=== PATIENT | female | born 1975 | race Caucasian/White ===

== ENCOUNTER 2020-08-16 10:47 | Emergency (ER) | payer MEDICARE, MEDICAID, SELFPAY ==
--- NOTE | ~2020-08-16 | XR_ITS ---
EXAMINATION: XR knee LT 3V DATE: 08/16/2020 11:47 INDICATION: Left knee pain, swelling and tenderness TECHNIQUE: Anteroposterior, oblique and crosstable lateral views of the left knee were obtained COMPARISON: None. FINDINGS: Alignment is normal. No fracture. Moderate-sized left knee joint effusion without layering lipohemar throsis. Soft tissue swelling at the medial aspect of the knee. IMPRESSION: 1. Moderate size left knee joint effusion and medial sided soft tissue swelling. No osseous abnormali ty. Reviewed, dictated and finalized at location A. ITE INSTALLER IMPRESSION: 1. Moderate size left knee joint effusion and medial sided soft tissue swelling . No osseous abnormality.
[2020-08-16 10:50] VITALS: BP 139/77; PULSE 71; RESP 18; TEMP 35.9; O2SAT 100
--- NOTE | 2020-08-16 12:19 | ED.LOWEXIN ---
HPI - Extremity Injury (Lower) General Chief Complaint: Extremity Injury, Lower Stated Complaint: L knee pain Time Seen by Provider: 08/16/20 11:13 Source: patient Mode of arrival: ambulatory Limitations: no limitations History of Present Illness HPI Narrative: 44-year-old female Generally healthy Complains of soreness, swelling, restriction in range of motion, and occasional locking sensation in left leg for several weeks Does seem to be getting a little worse for the last few days There is no recent injury but she does recall that about a year ago she was lying on the ground and somebody fell on the back of that leg Review of Systems Review of Systems: All systems reviewed & are unremarkable except as noted in HPI and below Constitutional: Constitutional: Denies fever(s) and Denies headache(s) Eyes: Eyes: Reports no additional eye complaints and Denies change in vision ENT: Denies headache(s) Comments: She is hard of hearing Cardiovascular: Cardiovascular: Denies leg edema, Denies palpitations and Denies dyspnea Genitourinary: Genitourinary: Denies urinary frequency Musculoskeletal: Musculoskeletal: Denies back pain, Denies deformity, Reports arthralgias, Reports joint swelling, Denies muscle weakness and Denies numbness Integumentary/Breasts: Skin/Breast: Denies rash and Denies wounds Endocrine: Endocrine: Denies palpitations Allergic/Immunologic: Allergic/Immunologic: Denies wheezing Exam Const: General: no acute distress, well developed and awake Nutritional Appearance: well nourished Orientation/consciousness: patient oriented x3 (alert) HENMT: Head: normocephalic and atraumatic General nose exam: No nasal discharge present Face and sinus: face symmetric Eyes: Conjunctivae: conjunctivae normal Sclera: sclerae normal EOM: EOMs intact bilaterally Neck: Neck: supple and no JVD Chest: Chest palpation & inspection: deferred Resp: Effort & Inspection: normal respiratory effort Auscultation: other (BS =) Cardio: Heart sounds: no gallops GI: Inspection: normal to inspection Back/Spine/Pelvis: Thoracic/Lumbar Spine: thoracic and lumbar spine normal to inspection Skin: General skin exam: no rashes or lesions noted Neuro: General: patient oriented x3 (alert) and moves all extremities Cranial nerves: Yes facial symmetry Speech: normal speech Extrem: General: normal to inspection and full ROM Other: Left knee has a small palpable knee effusion Cannot elicit any varus valgus or AP laxity with stress testing No redness and no well localized tenderness Course Vital Signs Vital signs: Vital Signs Temperature 35.9 C L 08/16/20 10:50 Pulse Rate 71 08/16/20 10:50 Respiratory Rate 18 08/16/20 10:50 Blood Pressure 139/77 08/16/20 10:50 Pulse Oximetry 100 08/16/20 10:50 Temperature 35.9 C L 08/16/20 10:50 Pulse Rate 71 08/16/20 10:50 Respiratory Rate 18 08/16/20 10:50 Blood Pressure 139/77 08/16/20 10:50 Pulse Oximetry 100 08/16/20 10:50 Discharge Plan Discharge Clinical Impression: Acute internal derangement of knee Patient Disposition: Home, Self-Care Condition: Stable Instructions: Swollen Knee Joint (ED) Additional Instructions: Suspicion is of loose bodies, either cartilage or bone chips, causing swelling and limitation of movement Please follow-up with orthopedics for further evaluation Prescriptions: New naproxen [Naprosyn] 500 mg tablet 500 mg PO BID Qty: 30 RF: 0 Follow-up/Referrals: Yo Baron MD [Physician] - (make appointment this week ) Vinayak Stephenson MD [Primary Care Provider] -
== END 2020-08-16 12:45 | disposition home or self-care (01) ==
PROVIDERS: Emergency Provider Emergency Medicine; PCP Family Medicine
DX: M23.92 Unspecified internal derangement of left knee (principal)
CPT/HCPCS: 73562; 99283

== ENCOUNTER 2020-08-22 13:36 | Emergency (ER) | payer MEDICARE, MEDICAID, SELFPAY ==
[2020-08-22] VITALS (10 sets, daily range): BP systolic 108–137; BP diastolic 63–85; PULSE 64–80; RESP 16–24; TEMP 36.8; O2SAT 97–100
--- NOTE | ~2020-08-22 | CT_ITS ---
EXAMINATION: CT brain wo con DATE: 08/22/2020 14:29 INDICATION: Fall. Syncopal episode. TECHNIQUE: Computed tomography (CT) of the head was performed without intravenous contrast. The mA wa s adjusted according to patient size. Iterative reconstruction technique was employed. Exam dose: 52 9.67 mGy-cm total exam DLP. COMPARISON: None FINDINGS: There is streak artifact from a right cochlear implant. No intracranial mass lesion or hemorrhage or cerebrovascular accident is evident. No midline shift or mass effect. Normal ventricular size. No subdural or epidural hematoma. No fracture or bone destruction of the cranial vault. The mastoid air cells and included paranasal si nuses are unremarkable. IMPRESSION: Right cochlear implant No acute intracranial finding or skull fracture Reviewed, dictated and finalized at Location A. Reviewed, dictated and finalized at location B. [employer] OPERATOR [employer]
--- NOTE | ~2020-08-22 | CT_ITS ---
EXAMINATION: CTA chest PE protocol EXAM DATE: 08/22/2020 15:49 INDICATION: Syncope. Abnormal chest x-ray. Transient alteration of awareness. TECHNIQUE: Spiral CTA of the chest (pulmonary arteries) was performed with 100 cc Omnipaque 350 intr avenous contrast injection. Images were acquired during the pulmonary arterial phase. Coronal maxi mum intensity projection 3D-reconstructions were created by the technologist on dedicated workstation . Axial, coronal and sagittal reformatted images were reviewed. The dose-length product (DLP) for t his examination was 418.59 mGy-cm. The exposure was tailored according to patient size (auto mA exp osure control), and iterative reconstruction (ASIR) was used as additional dose reduction technique. There is no prior study for comparison. FINDINGS: Pulmonary arteries are well opacified and without intraluminal filling defects. No thora cic aortic dissection. The lungs are clear. There are no pleural or pericardial effusions. Trach eobronchial tree is patent. There is no mediastinal, hilar or axillary lymphadenopathy. There is no pneumothorax. Heart normal in size. No evidence of coronary arterial calcification. Upper abd omen is unremarkable. The bones are unremarkable. IMPRESSION: 1. Normal CT pulmonary exam. Reviewed, dictated and finalized at location A. STEWARD
--- NOTE | ~2020-08-22 | XR_ITS ---
EXAMINATION: XR chest 1V portable DATE: 08/22/2020 14:46 INDICATION: Transient alteration of awareness. TECHNIQUE: A single frontal view of the chest was obtained. COMPARISON: None. FINDINGS: There are mild airspace opacities in right lower lung zone. No pleural effusion or pneumoth orax. The heart size is normal. IMPRESSION: 1. Mild airspace opacities in right lower lung zone, consistent with atelectasis versus pneumonia. Reviewed, dictated and finalized at location A. TRON BEAM WELDER IMPRESSION: 1. Mild airspace opacities in right lower lung zone, consistent with atelectasi s versus pneumonia.
--- NOTE | ~2020-08-22 | XR_ITS ---
XR elbow LT min 3V 08/22/2020 14:39 INDICATION: Left elbow pain after fall PROCEDURE: 4 views left elbow. Lateral views nonstandard limiting evaluation for joint effusion. COMPARISON: No prior studies for comparison. FINDINGS: There is a possible nondisplaced radial head fracture. The soft tissues appear within charlie l limits. No foreign bodies are identified. IMPRESSION: 1: Possible nondisplaced radial head fracture. Reviewed, dictated and finalized at location A. PATIONAL THER
--- NOTE | ~2020-08-22 | XR_ITS ---
EXAMINATION: XR wrist LT min 3V DATE: 08/22/2020 14:39 INDICATION: Left wrist pain. Fall. TECHNIQUE: 4 views of left wrist were obtained. COMPARISON: None. FINDINGS: There is a nondisplaced oblique fracture of ulnar head and styloid process. There is mild o steoarthritis of first carpometacarpal joint. IMPRESSION: 1. Nondisplaced oblique fracture of distal ulna. Reviewed, dictated and finalized at location A. CTOR SALES
--- NOTE | 2020-08-22 13:49 | ECG_ITS ---
Measurements Intervals [place] Rate: 61 P: -25 AL: 159 QRS: 138 QRSD: 102 T: -31 QT: 378 QTc: 383 Interpretive Statements SINUS RHYTHM LEFT POSTERIOR FASCICULAR BLOCK BORDERLINE T WAVE ABNORMALITY- INFERIOR LEADS BASELINE ARTIFACT- III, AVR, AVL, AVF ABNORMAL ECG Electronically Signed On 08-22-2020 14:23:23 LANDSCAPE AND [employer]ARDWORK LABORER by Chadwick Juárez D.O.
[2020-08-22 14:04] LABS: Basophils Percent Auto 0.4 % (0.2-1.2); Eosinophils Percent Auto 0.5 % (0-4.4); Hematocrit 36.6 % (37.0-47.0); Immature Granulocyte Absolute 0.02 K/mm3 (0.00-0.031); Immature Granulocyte Percent A 0.3 % (0-0.5); Lymphocytes Percent Auto 20.6 % (18.3-44.2); Mean Corpuscular HGB Conc 32.8 g/dl (32-36); Mean Corpuscular Hemoglobin 29.9 pg (26-34); Monocytes Absolute Auto 0.4 K/mm3 (0.1-0.6); Monocytes Percent Auto 4.9 % (2.6-8.5); Neutrophils Absolute Auto 5.7 K/mm3 (1.3-6.7); Neutrophils Percent Auto 73.3 % (45.5-73.1); Platelet Count Result 236 k/mm3 (150-375); Red Blood Count 4.02 M/mm3 (4.2-5.4); Red Cell Distribution Width 12.6 % (11.5-14.5); White Blood Count 7.8 K/mm3 (4.5-10.0)
[2020-08-22 14:14] LABS: Anion Gap 9 mmol/L (8-16); Blood Urea Nitrogen 11 mg/dL (7-17); Carbon Dioxide 25 mmol/L (22-30); Chloride 104 mmol/L (98-107); Estimated CRCL calculation 75 ml/min; Estimated Glomerular Filt Rate > 60; Glucose 143 mg/dL (65-105); Potassium 3.3 mmol/L (3.4-5.0); Sodium 138 mmol/L (137-145)
[2020-08-22] MEDS: SODIUM CHLORIDE 0.9% IV 1,000 ML 999 ML IV CONT (14:44)
[2020-08-22 15:01] LABS: D Dimer 0.67 ug/mL (<0.48)
[2020-08-22 15:07] LABS: Add Urine Microscopic? YES; Appearance Urine Clear (Clear); Bacteria Urine Trace /hpf; Bilirubin Urine Negative (Negative); Blood Urine Negative (Negative); Color Urine Yellow (Yellow); Glucose Urine UA Negative (Negative); Ketones Urine Negative (Negative); Leukocyte Esterase Ur Negative LEU/UL (Negative); Mucus Urine Moderate /lpf; Nitrate Urine Negative (Negative); Protein Urine 1+ mg/dL (Negative); RBC Urine 0-2 /hpf (0-2); Specific Grav Ur 1.024 (1.001-1.035); Squamous Epithelial Cell Urine Moderate /hpf (Few); Urobilinogen Urine Negative mg/dL (<2.0)
[2020-08-22 15:21] LABS: Troponin I < 0.012 ng/mL (0.000-0.034)
--- NOTE | 2020-08-22 16:58 | ED.GENADULT ---
HPI - General Adult General Chief complaint: Syncope <Efren Kilpatrick PA-C - Last Filed: 08/22/20 17:11> Stated complaint: sick after donating plasma yest. <Efren Kilpatrick PA-C - Last Filed: 08/22/20 17:11> Time Seen by Provider: 08/22/20 13:56 <Efren Kilpatrick PA-C - Last Filed: 08/22/20 17:11> Source: patient <Efren Kilpatrick PA-C - Last Filed: 08/22/20 17:11> Mode of arrival: ambulatory <Efren Kilpatrick PA-C - Last Filed: 08/22/20 17:11> Limitations: no limitations <Efren Kilpatrick PA-C - Last Filed: 08/22/20 17:11> History of Present Illness HPI narrative: Patient is a 44-year-old female who presents to emergency department for evaluation after having had 3 syncopal episodes yesterday patient notes that she went and gave plasma and then upon turning home had 3 syncopal episodes yesterday has not had any since on arrival notes mild pain to the left elbow the left ulnar aspect of the wrist patient notes mild right-sided frontal headache where she may have struck her head. Patient notes that she has also had some slight chills since. Patient also notes some slight nausea. Patient otherwise in no distress upon arrival presents in no distress does not appear uncomfortable patient denies similar occurrence in the past <Efren Kilpatrick PA-C - Last Filed: 08/22/20 17:11> Related Data Allergies/adverse reactions: Allergies Allergy/AdvReac Type Severity Reaction Status Date / Time codeine AdvReac Nausea and Verified 08/22/20 14:01 Vomiting <Efren Kilpatrick PA-C - Last Filed: 08/22/20 17:11> Review of Systems Review of Systems: All systems reviewed & are unremarkable except as noted in HPI and below <Efren Kilpatrick PA-C - Last Filed: 08/22/20 17:11> PMFSH Past Medical History Medical History: Medical History (Updated 08/22/20 @ 17:09 by Efren Kilpatrick PA-C) Hard of hearing <PATRICIA Penn Last Filed: 08/22/20 17:11> Surgical History Surgical History: Surgical History (Updated 08/22/20 @ 17:01 by Efren Kilpatrick PA-C) History of cochlear implant <Efren Kilpatrick PA-C - Last Filed: 08/22/20 17:11> Social History Social History: Social History (Updated 08/22/20 @ 17:01 by Efren Kilpatrick PA-C) Smoking status: Never smoker Gender identity (if verbalized by the patient): Female <Efren Kilpatrick PA-C - Last Filed: 08/22/20 17:11> Exam Narrative: Exam Narrative: GENERAL: Well-appearing, well-nourished, and in no acute distress. HEAD: Normocephalic, small bruising to the right forehead EYES: PERRLA and EOMI. ENT: Nares clear, no rhinorrhea or epistaxis. Mucous membranes moist. NECK: Supple. No adenopathy or masses. CHEST: Clear to auscultation. No respiratory distress. No wheezes rales or rhonchi HEART: Regular rate and rhythm. No murmur heard. Normal peripheral pulses. ABDOMEN: Soft, nontender, nondistended EXTREMITIES: Tenderness of the elbow joint and wrist joint no deformities noted. No cervical thoracic or lumbar tenderness SKIN: Warm, dry, no rash. NEURO: No focal deficits. Alert and oriented x3. Neurovascularly intact. Cranial nerves II through XII grossly intact. Normal speech and gait PSYCH: Normal mood and affect. <Efren Kilpatrick PA-C - Last Filed: 08/22/20 17:11> Course Course Emergency Course: Patient in the room at this time resting comfortably aware of case findings treatment plan and diagnosis felt appropriate for outpatient reevaluation by orthopedic surgery and primary care patient is hemodynamically stable ABCs intact hydrated in the emergency department felt appropriate for outpatient reevaluation patient agrees with this plan lives at home with family feels safe at home. <Efren Kilpatrick PA-C - Last Filed: 08/22/20 17:11> Vital Signs Vital signs: Vital Signs Temperature 36.8 C 08/22/20 13:46 Pulse Rate 66 08/22/20 13:46 Respiratory Rate 17
[2020-08-23 01:17] LABS: SARS-CoV-2 RNA PCR Negative
== END 2020-08-22 17:34 | disposition home or self-care (01) ==
PROVIDERS: Emergency Medicine Emergency Medical Services; Family Medicine; Emergency Provider Emergency Medicine
DX: R55 Syncope and collapse (principal); S52.692A Other fracture of lower end of left ulna, initial encounter for closed fracture; S52.125A Nondisplaced fracture of head of left radius, initial encounter for closed fracture; S09.90XA Unspecified injury of head, initial encounter; Z20.828 Contact with and (suspected) exposure to other viral communicable diseases; H91.90 Unspecified hearing loss, unspecified ear; I44.5 Left posterior fascicular block; R91.8 Other nonspecific abnormal finding of lung field; R94.31 Abnormal electrocardiogram [ECG] [EKG]; W18.39XA Other fall on same level, initial encounter
CPT/HCPCS: 29105; 36415; 70450; 71045; 71275; 73080; 73110; 80048; 81001; 84484; 85025; 85380; 87635; 93005; 96361; 96365; 99284; A4565; C9803; J0131; J7030; Q9967; U0003

== ENCOUNTER 2020-08-24 14:24 | Emergency (ER) | payer MEDICARE, MEDICAID, SELFPAY ==
--- NOTE | ~2020-08-24 | XR_ITS ---
EXAMINATION: XR ankle RT min 3V EXAM DATE: 08/24/2020 14:59 INDICATION: Pain/swelling lateral side of right ankle. TECHNIQUE: Right ankle frontal, lateral and oblique projections obtained and reviewed. There is no p rior study for comparison. FINDINGS: The right ankle mortise appears intact. Small to moderate-sized posterior calcaneal spur . There are no acute fractures or dislocations identified. There is no subcutaneous gas. The soft t issue is unremarkable. There are no radiopaque foreign bodies. IMPRESSION: Right calcaneal posterior spur. Reviewed, dictated and finalized at location A. PRESIDENT QUALITY IMPROVEMENT
[2020-08-24 14:27] VITALS: BP 133/74; PULSE 70; RESP 16; TEMP 36; O2SAT 100
--- NOTE | 2020-08-24 14:55 | ED.GENADULT ---
HPI - General Adult General Chief complaint: Extremity Injury, Lower <Efren Kilpatrick PA-C - Last Filed: 08/24/20 15:17> Stated complaint: rt annkle injury <Efren Kilpatrick PA-C - Last Filed: 08/24/20 15:17> Time Seen by Provider: 08/24/20 14:29 <Efren Kilpatrick PA-C - Last Filed: 08/24/20 15:17> Source: patient and old records reviewed <Efren Kilpatrick PA-C - Last Filed: 08/24/20 15:17> Mode of arrival: ambulatory <Efren Kilpatrick PA-C - Last Filed: 08/24/20 15:17> Limitations: no limitations <Efren Kilpatrick PA-C - Last Filed: 08/24/20 15:17> History of Present Illness HPI narrative: Patient is a 44-year-old female who returns to emergency department noting that she had been seen for syncopal episodes and states that she noticed after being discharged that she also was having right ankle pain presents for evaluation of it noting some swelling and bruising around the ankle joint worse with weightbearing and activity patient denies other injuries or complaints and on arrival does not appear distressed <Efren Kilpatrick PA-C - Last Filed: 08/24/20 15:17> Related Data Allergies/adverse reactions: Allergies Allergy/AdvReac Type Severity Reaction Status Date / Time codeine AdvReac Nausea and Verified 08/24/20 14:32 Vomiting <Efren Kilpatrick PA-C - Last Filed: 08/24/20 15:17> Review of Systems Review of Systems: All systems reviewed & are unremarkable except as noted in HPI and below <Efren Kilpatrick PA-C - Last Filed: 08/24/20 15:17> [facility] Past Medical History Medical History: Medical History Hard of hearing <Efren Kilpatrick PA-C - Last Filed: 08/24/20 15:17> Surgical History Surgical History: Surgical History History of cochlear implant <PATRICIA Penn Last Filed: 08/24/20 15:17> Social History Social History: Social History Smoking status: Never smoker Gender identity (if verbalized by the patient): Female <Efren Kilpatrick PA-C - Last Filed: 08/24/20 15:17> Exam Narrative: Exam Narrative: GENERAL: Well-appearing, well-nourished, and in no acute distress. HEAD: Normocephalic, atraumatic. EYES: PERRLA and EOMI. ENT: Nares clear, no rhinorrhea or epistaxis. Mucous membranes moist. CHEST: Clear to auscultation. No respiratory distress. No wheezes rales or rhonchi HEART: Regular rate and rhythm. No murmur heard. EXTREMITIES: Swelling bruising tenderness of the right ankle joint SKIN: Warm, dry, no rash. NEURO: No focal deficits. Alert and oriented x3. Neurovascularly intact PSYCH: Normal mood and affect. No distress <Efren Kilpatrick PA-C - Last Filed: 08/24/20 15:17> Course Course Emergency Course: Patient in the room no distress made aware of case findings treatment plan diagnosis felt appropriate for outpatient reevaluation José Manuel wrap provided patient able to tolerate weightbearing <Efren Kilpatrick PA-C - Last Filed: 08/24/20 15:17> Vital Signs Vital signs: Vital Signs Temperature 96.8 F L 08/24/20 14:27 Pulse Rate 70 08/24/20 14:27 Respiratory Rate 16 08/24/20 14:27 Blood Pressure 133/74 08/24/20 14:27 Pulse Oximetry 100 08/24/20 14:27 Temperature 96.8 F L 08/24/20 14:27 Pulse Rate 70 08/24/20 14:27 Respiratory Rate 16 08/24/20 14:27 Blood Pressure 133/74 08/24/20 14:27 Pulse Oximetry 100 08/24/20 14:27 <Efren Kilpatrick PA-C - Last Filed: 08/24/20 15:17> Vital Signs Temperature 96.8 F L 08/24/20 14:27 Pulse Rate 70 08/24/20 14:27 Respiratory Rate 16 08/24/20 14:27 Blood Pressure 133/74 08/24/20 14:27 Pulse Oximetry 100 08/24/20 14:27 Temperature 96.8 F L 08/24/20 14:27 Pulse Rate 70 08/24/20 14:27 Respiratory Rate 16 08/24/20 14:27 Blood
== END 2020-08-24 15:26 | disposition home or self-care (01) ==
PROVIDERS: Emergency Provider General Practice
DX: S93.401A Sprain of unspecified ligament of right ankle, initial encounter (principal); S96.911A Strain of unspecified muscle and tendon at ankle and foot level, right foot, initial encounter; H91.90 Unspecified hearing loss, unspecified ear; M77.31 Calcaneal spur, right foot; W18.39XA Other fall on same level, initial encounter
CPT/HCPCS: 73610; 99283

== ENCOUNTER 2024-04-23 19:56 | Emergency (ER) | payer MEDICARE, MEDICAID, SELFPAY ==
--- NOTE | ~2024-04-23 | CT_ITS ---
EXAMINATION: CT brain wo con DATE: 04/24/2024 01:02 INDICATION: Loss of consciousness. Fall. TECHNIQUE: Computed tomography (CT) of the head was performed without intravenous contrast. The mA wa s adjusted according to patient size. Iterative reconstruction technique was employed. The dose-lengt h product was 529.67 mGy-cm. COMPARISON: Head CT 08/22/2020 FINDINGS: There is no intracranial hemorrhage, acute infarction, or abnormal intracranial mass lesion . The ventricles are normal in size. The orbits are normal. There is mild mucosal thickening in the p aranasal sinuses. There is a right-sided cochlear implant. IMPRESSION: 1. Normal brain. Reviewed, dictated and finalized at location A. IMPRESSION: 1. Normal brain.
--- NOTE | ~2024-04-23 | XR_ITS ---
EXAMINATION: XR chest 2V Exam Date/Time: 04/23/2024 20:36 CDT HISTORY: syncope, dizziness Comparison: 08/22/2020. RESULT: Lines, tubes, and devices: None. Lungs and pleura: Clear. Cardiomediastinal silhouette: Stable. Other: No acute osseous or upper abdominal finding. IMPRESSION: No acute cardiopulmonary process. Reviewed, dictated and finalized at location K.
[2024-04-23 20:08] VITALS: BP 103/86; PULSE 77; RESP 15; TEMP 36.6; O2SAT 98
--- NOTE | 2024-04-23 20:14 | ECG_ITS ---
Test Date: 2024-04-23 20:17:58 Measurements Intervals [place] Rate: 88 P: 35 RI: 189 QRS: 32 QRSD: 101 T: 29 QT: 360 QTc: 437 Interpretive Statements SINUS RHYTHM POSSIBLE LEFT ATRIAL ENLARGEMENT [-0.1mV P WAVE IN V1/V2] No previous ECG available for comparison Electronically Signed On 04-24-2024 10:18:56 CDT by Liza Boudreaux M.D.
[2024-04-23 22:54] VITALS: BP 122/83; PULSE 72; RESP 18; TEMP 36.8; O2SAT 99
[2024-04-24 00:28] VITALS: BP 118/78; PULSE 79; RESP 15; O2SAT 99
[2024-04-24 00:41] LABS: Basophils Absolute Auto 0.1 K/mm3 (0.0-0.1); Basophils Percent Auto 0.7 % (0.2-1.2); Eosinophils Absolute Auto 0.1 K/mm3 (0-0.3); Eosinophils Percent Auto 0.9 % (0-4.4); Hematocrit 38.2 % (37.0-47.0); Hemoglobin 12.4 g/dL (12.0-15.0); Immature Granulocyte Absolute 0.02 K/mm3 (0.00-0.031); Immature Granulocyte Percent A 0.2 % (0-0.5); Lymphocytes Absolute Auto 1.86 K/mm3 (0.9-3.2); Lymphocytes Percent Auto 22.9 % (18.3-44.2); Mean Corpuscular HGB Conc 32.5 g/dl (32-36); Mean Corpuscular Hemoglobin 28.6 pg (26-34); Mean Corpuscular Volume 88.2 fl (80-100); Mean Platelet Volume 10.5 fl (7.4-10.4); Monocytes Absolute Auto 0.8 K/mm3 (0.1-0.6); Monocytes Percent Auto 9.2 % (2.6-8.5); Neutrophils Absolute Auto 5.4 K/mm3 (1.3-6.7); Neutrophils Percent Auto 66.1 % (45.5-73.1); Platelet Count Result 306 k/mm3 (150-375); Red Blood Count 4.33 M/mm3 (4.2-5.4); Red Cell Distribution Width 14.2 % (11.5-14.5); White Blood Count 8.1 K/mm3 (4.5-10.0)
--- NOTE | 2024-04-24 00:43 | ED.DIZZY ---
HPI - Dizziness General Chief Complaint: Syncope Stated Complaint: seizure Time Seen by Provider: 04/24/24 00:18 Source: patient Mode of arrival: ambulatory Limitations: no limitations History of Present Illness HPI Narrative: This is a 48-year-old female who presents to the ED with chief complaint of possible syncopal episode that occurred around 1000 this morning. Patient reports that she was sitting at her desk as normal when all the sudden she felt very woozy, nauseous and had hot flash, lightheadedness. States that she tried to go to bathroom and thinks she may have fallen. Her significant other is bedside states that she fell twice while trying to make it to the bathroom. States that she hit her head on the cabinet in the bathroom. He states that she had LOC for about 90 seconds. States that she came to and did not seem altered when she regained consciousness. He does state that he thinks she bit her tongue. Related Data Allergies Allergy/AdvReac Type Severity Reaction Status Date / Time codeine AdvReac Nausea and Verified 04/23/24 20:19 Vomiting Review of Systems Review of Systems: All systems as dictated in HPI [facility] Past Medical History Medical History Fracture of radial head, left, closed Hard of hearing Moderate right ankle sprain Surgical History Surgical History History of cochlear implant Social History Social History Gender identity (if verbalized by the patient): Female Exam Narrative: GENERAL: Well-appearing, well-nourished, and in no acute distress. HEAD: Normocephalic, atraumatic. EYES: PERRLA and EOMI. ENT: Nares clear, no rhinorrhea or epistaxis. Mucous membranes moist. Oropharynx without tonsillar hypertrophy exudate or other lesions. No tongue or lip lacerations NECK: Supple. No adenopathy or masses. CHEST: No respiratory distress. Clear to auscultation. No wheezes rales or rhonchi HEART: Regular rate and rhythm. No murmur heard. Normal peripheral pulses. ABDOMEN: Soft, nontender, nondistended, normal active bowel sounds. MSK: Normal range of motion. No edema. SKIN: Warm, dry, no rash. NEURO: Alert and oriented x4. No focal deficits. PSYCH: Normal mood and affect. Course Vital Signs Vital signs: Vital Signs Temperature 97.8 F 04/23/24 20:08 Pulse Rate 77 04/23/24 20:08 Respiratory Rate 15 04/23/24 20:08 Blood Pressure 103/86 04/23/24 20:08 Pulse Oximetry 98 04/23/24 20:08 Oxygen Delivery Room Air 04/23/24 20:08 Temperature 98.3 F 04/23/24 22:54 Pulse Rate 79 04/24/24 00:28 Respiratory Rate 15 04/24/24 00:28 Blood Pressure 118/78 04/24/24 00:28 Pulse Oximetry 99 04/24/24 00:28 Oxygen Delivery Room Air 04/23/24 20:08 MDM - Dizziness MDM Narrative Medical decision making narrative: this is a 48-year-old female who presents to the ED with chief complaint of possible syncopal episode this morning. Vitals are normal. Exam is benign overall. ECG shows normal sinus rhythm Lab work overall unremarkable. CT imaging of the brain shows no acute findings. Chest x-ray is normal. Pt will be discharged in stable condition. Return precautions given and supportive measures discussed. Pt is understanding and agreeable with plan for discharge and follow-up with PCP. Lab Data 04/24/24 00:34 04/24/24 00:33 Labs: Lab Results 04/24/24 04/24/24 Range/Units 00:33 00:34 WBC 8.1 (4.5-10.0) K/mm3 RBC 4.33 (4.2-5.4) M/mm3 Hgb 12.4 (12.0-15.0) g/dL Hct 38.2 (37.0-47.0) % MCV 88.2 (80-100) fl MCH 28.6 (26-34) pg MCHC 32.5 (32-36) g/dl RDW 14.2 (11.5-14.5) % Plt Count 306 (150-375) k/mm3 MPV 10.5 H (7.4-10.4) fl Immature Gran % (Auto) 0.2 (0-0.5) % Neut % (Auto) 66.1 (4
[2024-04-24 00:48] LABS: Chloride 100 mmol/L (98-107)
[2024-04-24 00:55] LABS: Alanine Aminotransferase 83 U/L (6-35); Albumin Level 4.4 g/dL (3.5-5.1); Alkaline Phosphatase 68 U/L (38-126); Anion Gap 9 mmol/L (4-12); Aspartate Amino Transferase 61 U/L (14-36); Bilirubin,Total 0.5 mg/dL (0.2-1.3); Blood Urea Nitrogen 9 mg/dL (7-17); Calcium 9.5 mg/dL (8.4-10.2); Carbon Dioxide 28 mmol/L (22-30); Estimated CRCL calculation 98 ml/min; Estimated Glomerular Filt Rate > 60; Glucose 119 mg/dL (65-110); Potassium 3.8 mmol/L (3.4-5.0); Sodium 137 mmol/L (137-145)
[2024-04-24] MEDS: SODIUM CHLORIDE 0.9% IV 1,000 ML 999 ML IV CONT (01:00)
[2024-04-24] MEDS: KETOROLAC 15 MG/ML VIAL (*BKC) IV PUSH (01:01)
[2024-04-24] MEDS: ONDANSETRON INJ 4 MG/2 ML VIAL IV PUSH (01:02)
[2024-04-24 01:39] VITALS: BP 139/87; PULSE 61; RESP 18; O2SAT 100
== END 2024-04-24 02:15 | disposition home or self-care (01) ==
PROVIDERS: Emergency Medicine; Emergency Provider Physician Assistant
DX: R55 Syncope and collapse (principal)
CPT/HCPCS: 36415; 70450; 71046; 80053; 85025; 93005; 96361; 96374; 96375; 99284; J1885; J2405; J7030